=== PATIENT | male | born 1945 | race Caucasian/White ===

== ENCOUNTER 2018-05-20 06:13 | Day surgery (SDC) | payer MEDICARE ==
--- NOTE | 2018-05-11 19:33 | HP ---
CC: Dr. Cortney Alcaraz; Dr. Hare. * PREOPERATIVE HISTORY AND PHYSICAL: DATE OF ADMISSION/SURGERY: 05/20/18 This patient is scheduled for same-day surgery admission by Dr. Osuna on , 05/20/18. DATE OF PREOPERATIVE HISTORY AND PHYSICAL EXAMINATION: 05/11/18 ATTENDING PHYSICIAN: Dr. Cisco Osuna ATTENDING SURGEON: Dr. Cisco Osuna * (dictated by Alicia Lao NP) CHIEF COMPLAINT: Left inguinal hernia. HISTORY OF PRESENT ILLNESS: The patient is a 72-year-old male recently evaluated by Dr. Osuna with a left inguinal hernia. Dr. Osuna saw him about 15 years ago when he had discomfort in the left groin and at that point, there was laxity in the left inguinal area, but no definite hernia. He remained asymptomatic for 15 years and then recently noticed a lump in the left groin that is more pronounced when he is standing up and reduces when he is lying down. He denies any pain or signs or symptoms that would suggest incarceration or strangulation. He is asymptomatic on the right side. Dr. Osuna examined the patient and notes a left inguinal hernia, which is relatively small, easily reducible and nontender. Dr. Osuna discussed the findings with the patient and has recommended open left inguinal hernia repair with mesh as a same-day surgery procedure. He discussed the nature of the surgery, the optional methods of treatment, the relevant risks and benefits and today, I reviewed the expected postoperative care and recovery. The patient has had a chance to ask questions and stated that he understands the information and is satisfied with the answers given to his questions. He will sign surgical consent on the day of surgery. PAST MEDICAL HISTORY: Significant for atrial fib/atrial flutter. He is followed by Dr. Hare and has had cardioversion in the past and more recently has been maintained on Pradaxa. Early Parkinson's, neuropathy in both feet and psoriasis. PAST SURGICAL HISTORY: Limited to the procedures of cardioversion and colonoscopy. MEDICATIONS: 1. Flecainide 100 mg p.o. b.i.d. 2. Levitra 20 mg p.o. daily in the evening. 3. Multivitamins 1 capsule daily. 4. Vitamin D3 1000 international units daily. 5. Pradaxa 150 mg p.o. b.i.d. and he will take his last dose on Thursday, . 6. Aspirin 81 mg p.o. daily and he will take his last dose on 05/14/18. ALLERGIES: No known drug allergies. FAMILY HISTORY: No known anesthesia complications, bleeding tendencies or clotting disorders. SOCIAL HISTORY: He is and is a retired [employer] architect. He is a nonsmoker and drinks approximately 2 beers a day and runs 3 miles daily for exercise. REVIEW OF SYSTEMS: Constitutional: No fevers, chills, excessive fatigue or weight loss. Endocrine: No diabetes or thyroid disease. Hematologic: No significant bleeding on the anticoagulation, but he does bruise easily. He has never required a blood transfusion. Respiratory: No dyspnea on exertion. No chronic cough. Cardiovascular: No anginal chest pain or palpitations. He sees Dr. Hare annually. Please refer to Dr. Hare's cardiology note from December 2017. Gastrointestinal: No nausea, vomiting, diarrhea, GI bleeding or constipation. No change in bowel habits. Genitourinary: No dysuria. Musculoskeletal: No joint pain or back pain. He is very active with running. Neurologic: No headache or blurred vision; he does report neuropathy in both feet and has been diagnosed with early Parkinson's with symptoms of bradykinesia. General: No previous anesthesia complications. No history of deep vein thrombosis or pulmonary embolism. PHYSICAL EXAMINATION GENERAL SURVEY: The patient is a 72-year-old male, well developed, well nourished, in no acute distress. VITAL SIGNS: Height 76 inches, weight 175 pounds, body mass index 21.3. Blood pressure 118/70, pulse 64 and regular, respiratory rate 16, temperature 96.8 tympanic. HEENT: Benign. NECK: Supple. No cervical lymphadenopathy. LUNGS: Breath sounds bilaterally clear and equal. HEART: Regular rate and rhythm. No murmurs or rubs appreciated. ABDOMEN: Active bowel sounds. Soft, nondistended, nontender throughout. No obvious masses or organomegaly or evidence of umbilical hernia. Inguinal exam is done by Dr. Osuna that revealed a small left inguinal hernia that is easily reducible and nontender. No right inguinal hernia. There is a mild laxity. GENITALIA AND RECTAL: Deferred. EXTREMITIES: Warm without edema or skin ulceration. NEUROLOGIC: Alert and oriented x3. Steady gait. SKIN: Warm, dry, intact. IMPRESSION: Left inguinal hernia. PLAN: Same-day surgery admission to Dr. Osuna's service for open left inguinal hernia repair with mesh on , 05/20/18. JYOTI LAO, [employer] [id number]/[facility] #: [id number] [place]CR[place]
[~2018-05-20 06:13] MED LIST: Buffered Lidocaine 0.9% SYRIN* 5 ML/SYR SYRINGE INTRADERM ONE; Dexamethasone TAB* 4 MG PO ONE; DiMENhydriNATE IV* 50 MG/ML VIAL IV PUSH PRN; Famotidine IV* 10 MG/ML 2 ML (20 mg) IV ONE; Morphine INJ* 2 MG/ML 1 ML CARPUJECT IV PRN; Naloxone* 0.4 MG/ML 1 ML VIAL IV PRN; PROCHLORPERAZINE INJ 5 MG/ML 2 ML VIAL IV PRN; Scopolamine 1.5 mg* PATCH TRANSDERM PRN; fentaNYL* 50 MCG/ML 2 ML VIAL (100 MCG VIAL) IV PRN; oxyCODONE/Acetamin 5/325 MG* TAB PO PRN
[2018-05-20] MEDS ORDERED: Famotidine IV* 10 MG/ML 2 ML (20 mg) ONE (06:49)
[2018-05-20] MEDS ORDERED: Ondansetron ODT TAB* 4 MG ONE (06:49)
[2018-05-20] MEDS ORDERED: ceFAZolin 2 GM PREMIX (*) 2 GM/50 ML BAG IVPB ONE (06:49)
[2018-05-20] MEDS ORDERED: Buffered Lidocaine 0.9% SYRIN* 5 ML/SYR SYRINGE ONE (06:49)
[2018-05-20] MEDS ORDERED: Dexamethasone TAB* 4 MG ONE (06:49)
[2018-05-20] MEDS ORDERED: Ondansetron TAB* 4 MG PO ONE (07:00)
[2018-05-20] MEDS ORDERED: Midazolam* 1 MG/ML 5 ML VIAL (5 MG) ONE (07:08)
[2018-05-20] MEDS ORDERED: fentaNYL* 50 MCG/ML 2 ML VIAL (100 MCG VIAL) ONE (07:08)
[2018-05-20] MEDS ORDERED: Lidocaine 1% MPF wEPI 200,000* 30 ML SDV ONE (07:11)
[2018-05-20] MEDS ORDERED: Bupivacaine 0.5% SDV PF* 30ML VIAL ONE (07:11)
[2018-05-20] MEDS ORDERED: Propofol* 500 MG/50 ML BTL ONE (07:48)
[2018-05-20] MEDS ORDERED: Lidocaine 2% PF * 5 ML VIAL ONE (07:48)
[2018-05-20] MEDS ORDERED: Flumazenil* 0.1 MG/ML 5 ML MDV ONE (07:49)
[2018-05-20 08:45] VITALS: BP 131/76
--- NOTE | 2018-05-20 21:43 | OP ---
CC: Dr. Alcaraz; Dr. Hare * DATE OF OPERATION: 05/20/18 - [facility] DATE OF : 47 SURGEON: Cisco Osuna MD PATIENT FINANCIAL REP: Alicia Kolb NP ANESTHESIOLOGIST: Dr. Isaac. ANESTHESIA: LMAC anesthesia. PRE-OP DIAGNOSIS: Left inguinal hernia. POST-OP DIAGNOSIS: Left inguinal hernia. OPERATIVE PROCEDURE: Left inguinal hernia repair with mesh. DESCRIPTION OF PROCEDURE: The patient was supine on the operative table. After adequate intravenous sedation, compression stockings, Su Hugger warmer and intravenous antibiotics, the left groin was clipped and prepped with antiseptic, drained in a sterile fashion. Local infiltrative anesthesia was administered. Approximately 2-1/2 inch incision was created and carried down to the tissue layers. External oblique was opened in the direction of its fibers. Cord structures were encircled with a Gould drain and tented upward. There was a direct space hernia. The transversalis fascia was opened. The preperitoneal plane was developed and a Prolene hernia system PHSE patch was put into place. The external leaf was sutured at the tubercle at the transverse abdominis and at the inguinal ligament using 2-0 Vicryl. The tails were split, brought around the cord structures and tacked down laterally. External oblique was closed over top with 2- 0 Vicryl, Shahram's was closed with 3-0 Vicryl and skin was closed with 4-0 Prolene followed by sterile dressing. He tolerated the procedure well, was brought to the Recovery in good condition. No complications, no drains, no pathologic specimens. Sponge and instrument counts were correct. Estimated blood loss 10 mL. [id number]/[facility] #: [id number] [facility]
[2018-05-23] MEDS ORDERED: Scopolamine PATCH Remove* 1 NOTE MISC PATCH OFF ONE (05:39)
== END 2018-05-20 09:55 | disposition home or self-care (01) ==
LOC: OR 06:13
PROVIDERS: ATTEND Surgery
DX: K40.90 Unilateral inguinal hernia, without obstruction or gangrene, not specified as recurrent (principal); I48.91 Unspecified atrial fibrillation; Z79.01 Long term (current) use of anticoagulants; Z87.891 Personal history of nicotine dependence
CPT/HCPCS: A9270-GY; C1781; J0690; J2001; J2250; J2704; J3010; J8540

== ENCOUNTER 2021-10-17 19:59 | Inpatient (IN) ==
[2021-10-17] MEDS ORDERED: NS 0.9% 1000 ml BAG 1,000 ML IV ONE (20:08)
[2021-10-17] MEDS ORDERED: cefTRIAXone 1 gm/50 mL NS BAG 1 GM/50 ML BAG IV ONE (20:10)
[2021-10-17 20:40] LABS: ABS Lymphocytes 0.2 10^3/ul (1.0-4.8); ABS Monocytes 0.1 10^3/ul (0-0.8); Eosinophil % 0.1 %; Hematocrit 38 % (42-52); Hemoglobin 12.9 g/dL (14.0-18.0); Lymphocyte % 2.1 %; Mean Corpuscular HGB Conc 34 g/dL (31-36); Mean Corpuscular Hemoglobin 32 pg (27-31); Mean Corpuscular Volume 93 fL (80-94); Mean Platelet Volume 6.5 fL (7.4-10.4); Platelet Count 186 10^3/uL (150-450); Red Blood Count 4.06 10^6 /uL (4.18-5.48); Red Cell Distribution Width 13 % (10-15); White Blood Count 9.3 10^3/uL (3.5-10.8)
[2021-10-17 20:41] LABS: Urine Appearance Clear; Urine Bilirubin Negative (Negative); Urine Blood 2+ (Negative); Urine Color Yellow; Urine Glucose Negative (Negative); Urine Ketones Negative (Negative); Urine Nitrite Negative (Negative); Urine Protein Negative (Negative); Urine Specific Gravity 1.012 (1.002-1.030); Urine Urobilinogen Negative (Negative)
[2021-10-17 20:58] LABS: ALT 25 U/L (7-52); Albumin 3.9 g/dL (3.2-5.2); Albumin/Globulin Ratio 1.4 (1-3); Alkaline Phosphatase 86 U/L (35-149); Blood Urea Nitrogen 23 mg/dL (6-24); C Reactive Protein 8.42 mg/L (<8.01); CO2 Carbon Dioxide 22 mmol/L (22-32); Calcium 8.7 mg/dL (8.6-10.3); Chloride 103 mmol/L (101-111); Globulin 2.7 g/dL (2-4); Glucose 105 mg/dL (70-100); Sodium 135 mmol/L (135-145); Total Protein 6.6 g/dL (6.4-8.9); eGFR CKD-EPI 41.5 (>60)
[2021-10-17 21:15] LABS: Troponin I 0.18 ng/mL (<0.03); Urine Bacteria Absent (Absent); Urine Red Blood Cell 2+(6-10/hpf) (Absent); Urine White Blood Cell 2+(11-20/hpf) (Absent)
[2021-10-17 21:35] LABS: Anion Gap 10 mmol/L (2-11); Potassium 3.8 mmol/L (3.5-5.0)
[2021-10-17 21:40] LABS: AST 29 U/L (13-39)
[2021-10-17] MEDS ORDERED: Lactated Ringers 1000 ml BAG IV.FLUID IV ONE (22:37)
[2021-10-17] MEDS ORDERED: Ondansetron 4 mg VIAL 2 MG/ML 2 ml VIAL IV PRN (23:15)
[2021-10-18 00:03] LABS: Folate 19.44 ng/mL (5.90-24.80)
[2021-10-18 00:04] LABS: Vitamin B12 712 pg/mL (180-914)
[2021-10-18 01:40] LABS: Troponin I 0.77 ng/mL (<0.03)
[2021-10-18] MEDS: Carbidopa/Levodop 25/100 MG TAB PO SCH ×4 (01:55→20:02)
[2021-10-18] MEDS: Dabigatran 150 mg CAP (NF) PO SCH ×3 (02:06→20:01)
[2021-10-18 04:12] LABS: Hematocrit 33 % (42-52); Hemoglobin 11.3 g/dL (14.0-18.0); Mean Corpuscular HGB Conc 34 g/dL (31-36); Mean Corpuscular Hemoglobin 32 pg (27-31); Mean Corpuscular Volume 93 fL (80-94); Mean Platelet Volume 6.5 fL (7.4-10.4); Platelet Count 171 10^3/uL (150-450); Red Blood Count 3.58 10^6 /uL (4.18-5.48); Red Cell Distribution Width 13 % (10-15); White Blood Count 18.4 10^3/uL (3.5-10.8)
[2021-10-18 04:29] LABS: Anion Gap 7 mmol/L (2-11); CO2 Carbon Dioxide 24 mmol/L (22-32); Calcium 8.3 mg/dL (8.6-10.3); Chloride 105 mmol/L (101-111); Potassium 4.1 mmol/L (3.5-5.0); Sodium 136 mmol/L (135-145)
[2021-10-18 04:34] LABS: Blood Urea Nitrogen 23 mg/dL (6-24); Glucose 126 mg/dL (70-100); eGFR CKD-EPI 49.4 (>60)
[2021-10-18 04:44] LABS: Troponin I 0.78 ng/mL (<0.03)
[2021-10-18 04:59] LABS: Total Iron Binding Capacity 337 mcg/dL (250-450); Transferrin 241 mg/dL (203-362)
[2021-10-18 05:19] LABS: Ferritin 50.5 ng/mL (24-336)
[2021-10-18 05:21] LABS: % Iron Saturation 6 % (15-55); Iron < 20 ug/dL (50-212); Unsaturated Iron Binding < 322 ug/dL
[2021-10-18] MEDS: Aspirin EC 81 mg TAB.EC (enteric coated) PO SCH (08:42)
[2021-10-18 08:51] LABS: Troponin I 0.56 ng/mL (<0.03)
[2021-10-18 09:16] LABS: ABS Lymphocytes 1.1 10^3/ul (1.0-4.8); ABS Monocytes 1.7 10^3/ul (0-0.8); ABS Neutrophils 15.6 10^3/ul (1.5-7.7); Lymphocyte % 5.9 %
[2021-10-18] MEDS ORDERED: NS 0.9% 1000 ml BAG 1,000 ML IV SCH (16:15)
[2021-10-18] MEDS ORDERED: cefTRIAXone 1 gm/50 mL NS BAG 1 GM/50 ML BAG IVPB SCH (21:00)
[2021-10-19] MEDS: Aspirin EC 81 mg TAB.EC (enteric coated) PO SCH (08:49)
[2021-10-19] MEDS: Carbidopa/Levodop 25/100 MG TAB PO SCH (08:49)
[2021-10-19] MEDS: Dabigatran 150 mg CAP (NF) PO SCH (08:51)
[2021-10-19 09:27] LABS: ABS Eosinophils 0.1 10^3/ul (0-0.6); ABS Lymphocytes 1.1 10^3/ul (1.0-4.8); ABS Monocytes 0.9 10^3/ul (0-0.8); ABS Neutrophils 6.1 10^3/ul (1.5-7.7); Eosinophil % 0.6 %; Hematocrit 38 % (42-52); Hemoglobin 12.9 g/dL (14.0-18.0); Lymphocyte % 13.2 %; Mean Corpuscular HGB Conc 34 g/dL (31-36); Mean Corpuscular Hemoglobin 32 pg (27-31); Mean Corpuscular Volume 94 fL (80-94); Mean Platelet Volume 7.1 fL (7.4-10.4); Nucleated Red Blood Cells % 0.1; Platelet Count 161 10^3/uL (150-450); Red Cell Distribution Width 13 % (10-15); White Blood Count 8.2 10^3/uL (3.5-10.8)
[2021-10-19 09:41] LABS: Calcium 8.5 mg/dL (8.6-10.3); eGFR CKD-EPI 81.4 (>60)
[2021-10-19 11:58] VITALS: BP 97/52
== END 2021-10-19 14:00 | disposition home or self-care (01) | DRG 689 ==
LOC: MED 19:59 → ED 19:59 → SUATTDRO 23:15 → MED 10-18 01:05
PROVIDERS: ADMIT Internal Medicine; ATTEND Hospitalist

== ENCOUNTER 2024-03-23 10:44 | Observation (INO) ==
[2024-03-23] MEDS: Lactated Ringers SEPSIS* BAG 2,540 ML IV ONE (12:02)
[2024-03-23] MEDS: Cefepime 2 GM in Dextrose 2 GM/50 ML BAG IV ONE (12:02)
[2024-03-23 12:25] LABS: Activated Partial Thrombo Time 35.9 seconds (26.0-38.0); INR 1.28 (0.83-1.13)
[2024-03-23 12:33] LABS: ALT 3 U/L (7-52); AST 41 U/L (13-39); Albumin 4.2 g/dL (3.2-5.2); Albumin/Globulin Ratio 1.6 (1-3); Alkaline Phosphatase 64 U/L (35-149); Anion Gap 7 mmol/L (2-16); Blood Urea Nitrogen 22 mg/dL (6-24); C Reactive Protein 98.97 mg/L (<8.01); CO2 Carbon Dioxide 27 mmol/L (22-32); Calcium 8.7 mg/dL (8.6-10.3); Chloride 101 mmol/L (101-111); Creatinine, Serum 1.08 mg/dL (0.67-1.17); Globulin 2.6 g/dL (2-4); Glucose 118 mg/dL (70-100); Potassium 4.2 mmol/L (3.5-5.0); Sodium 135 mmol/L (135-145); Total Bilirubin 1.7 mg/dL (0.2-1.0); Total Protein 6.8 g/dL (6.4-8.9); eGFR CKD-EPI 70.7 (>60)
[2024-03-23 12:38] LABS: ABS Lymphocytes 0.4 10^3/uL (1.0-4.8); ABS Monocytes 0.9 10^3/uL (0.0-1.1); ABS Neutrophils 15.8 10^3/uL (1.5-7.6); Hematocrit 40.6 % (38-53); Hemoglobin 13.6 g/dL (13.2-16.3); Lymphocyte % 2.5 %; Mean Corpuscular Hemoglobin 31.6 pg (27-33); Mean Corpuscular Hgb Conc 33.6 g/dL (31-36); Mean Corpuscular Volume 93.9 fL (80-97); Platelet Count 194 10^3/uL (150-450); Red Blood Count 4.32 10^6/uL (4.06-5.63); Red Cell Distribution Width 13.3 % (12-17); White Blood Count 17.2 10^3/uL (3.6-10.2)
[2024-03-23 12:57] LABS: Urine Appearance Clear; Urine Bilirubin Negative (Negative); Urine Blood 3+ (Negative); Urine Color Yellow; Urine Glucose Negative (Negative); Urine Ketones 1+ (Negative); Urine Nitrite 2+ (Negative); Urine Protein Trace (Negative); Urine Specific Gravity 1.017 (1.002-1.030); Urine Urobilinogen Negative (Negative)
[2024-03-23 13:04] LABS: Urine Amorphous Crystals Present /HPF (Absent); Urine Bacteria 1+ /HPF (Absent); Urine Red Blood Cell 3+(>10/hpf) /HPF (0-Trace); Urine White Blood Cell Trace(0-5/hpf) /HPF (0-Trace)
[2024-03-23] MEDS: Vancomycin 1,250 MG in NS 0.9% 250 ml 250 ML IVPB ONE (15:14)
[2024-03-23] MEDS ORDERED: LORazepam 2 mg VIAL 1 ml IV PUSH SCH (17:00)
[2024-03-23 17:25] LABS: Alcohol, S < 13 mg/dL (<13)
[2024-03-23] MEDS: Carbidopa/Levodop CR 50/200 TAB.CR PO SCH (18:35)
[2024-03-23] MEDS: Carbidopa/Levodop 25/100 MG TAB PO PRN (18:35)
[2024-03-23] MEDS: LEVODOPA PO SCH (18:39)
[2024-03-23] MEDS: CARBIDOPA PO SCH (18:39)
[2024-03-23] MEDS: cefTRIAXone 1 gm/50 mL D5W 1 GM/50 ML BAG IV SCH (22:16)
[2024-03-23] MEDS: CMCS: Dabigatran 150 mg CAP (NF) PO SCH (22:17)
[2024-03-24 06:38] LABS: ABS Lymphocytes 1.4 10^3/uL (1.0-4.8); ABS Neutrophils 6.8 10^3/uL (1.5-7.6); Eosinophil % 0.1 %; Hematocrit 35.4 % (38-53); Hemoglobin 12.1 g/dL (13.2-16.3); Lymphocyte % 15.1 %; Mean Corpuscular Hgb Conc 34.1 g/dL (31-36); Mean Corpuscular Volume 93.9 fL (80-97); Mean Platelet Volume 6.9 fL (7.5-11.2); Platelet Count 155 10^3/uL (150-450); Red Blood Count 3.77 10^6/uL (4.06-5.63); Red Cell Distribution Width 13.3 % (12-17); White Blood Count 9.3 10^3/uL (3.6-10.2)
[2024-03-24 07:11] LABS: Albumin 3.3 g/dL (3.2-5.2); Albumin/Globulin Ratio 1.4 (1-3); Calcium 7.8 mg/dL (8.6-10.3); Creatinine, Serum 0.9 mg/dL (0.67-1.17); Globulin 2.3 g/dL (2-4); Potassium 3.8 mmol/L (3.5-5.0); Total Bilirubin 1.2 mg/dL (0.2-1.0); Total Protein 5.6 g/dL (6.4-8.9)
[2024-03-24] MEDS: CARBIDOPA PO SCH (09:58)
[2024-03-24] MEDS: LEVODOPA PO SCH (09:58)
[2024-03-24] MEDS: Aspirin EC 81 mg TAB.EC (enteric coated) PO SCH (10:00)
[2024-03-24 14:32] VITALS: BP 90/54
[2024-03-24] MEDS ORDERED: Naloxone Nasal Spray 4 MG/0.1 ML NASAL.SPR INTRANASAL PRN (16:45)
== END 2024-03-24 16:00 | disposition home or self-care (01) ==
LOC: ED 10:44 → EDHOLD 10:44 → SUATTDRO 13:27 → MED 15:52
PROVIDERS: ADMIT Internal Medicine; ATTEND Internal Medicine